=== PATIENT | male | born 1950 | race Caucasian/White ===

== ENCOUNTER 2019-05-29 18:45 | Inpatient (IN) | payer OTHER, MEDICAID ==
[~2019-05-29] VITALS: Ht 180.3 cm; Wt 84.8 kg
[2019-05-29 18:45] VITALS: BP_SYST 115
--- NOTE | 2019-05-29 18:45 | NUR ---
Patient to ER bed 5 to gown for evaluation. Side rails up. Report given to JUAN A Riebra.
--- NOTE | 2019-05-29 18:50 | NUR ---
Patient BIB BLS from [facility] for further assessment of right foot wound that has continued to get worse. Patient has a wound on his right food between his third and fourth toe. Patient is alert and oriented x4 and is eritrean speaking. 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 Patient has a history of hypertension, diabetes, chronic osteomyelitis and is legally blind in both eyes. Patient was started on Levaquin on the for a duration of 42 days.
--- NOTE | 2019-05-29 19:09 | NUR ---
report given to mindy snyder
--- NOTE | 2019-05-29 19:30 | NUR ---
ER Dr. Bush at bedside examining patient.
--- NOTE | 2019-05-29 20:00 | NUR ---
Radiology at bedside.
--- NOTE | 2019-05-29 20:05 | NUR ---
Lab at bedside.
[2019-05-29 20:18] LABS: BASOPHILS # (AUTO) 0.1 K/uL (0.0-0.2); BASOPHILS % (AUTO) 0.8 % (0.0-2.0); EOSINOPHILS # (AUTO) 0.1 K/uL (0.0-0.4); EOSINOPHILS % (AUTO) 0.7 % (0.0-4.0); HEMATOCRIT 34.2 % (36-54); HEMOGLOBIN 11.5 g/dL (14.0-18.0); LYMPHOCYTES # (AUTO) 0.5 K/uL (1.0-5.5); LYMPHOCYTES % (AUTO) 3.7 % (20.5-51.5); MEAN CORPUSCULAR HEMOGLOBIN 32 pg (27-31); MEAN CORPUSCULAR HGB CONC 34 % (32-36); MEAN CORPUSCULAR VOLUME 94 fL (79.0-98.0); MONOCYTES # (AUTO) 0.6 K/uL (0.0-1.0); MONOCYTES % (AUTO) 4.1 % (1.7-9.3); NEUTROPHILS % (AUTO) 90.7 % (40.0-70.0); PLATELET COUNT (AUTO) 207 K/uL (130-430); RED BLOOD CELL COUNT(AUTO) 3.65 MIL/uL (4.2-6.2); RED CELL DISTRIBUTION WIDTH 12.7 % (9.0-15.0); WHITE BLOOD COUNT (AUTO) 14.3 K/uL (4.8-10.8)
[2019-05-29 20:37] LABS: CALCIUM 7.8 mg/dL (8.4-11.0); CREATININE 1.37 mg/dL (0.55-1.30); POTASSIUM 3.9 mmol/L (3.5-5.1)
[2019-05-29 20:47] LABS: ALBUMIN 1.8 g/dL (3.4-4.8); TOTAL BILIRUBIN 0.4 mg/dL (0.0-1.0)
[2019-05-29 21:08] LABS: C-REACTIVE PROTEIN QUANT 17.1 mg/dL (0-0.5)
[2019-05-29] MEDS ORDERED: NACL 0.9% 1,000 ML IV ONE (21:30)
[2019-05-29] MEDS ORDERED: PIPERACILLIN/TAZO 3.375 GM in NS 50 ML IV ONE (21:30)
[2019-05-29] MEDS ORDERED: VANCOMYCIN HCL 1,000 MG in NS 250 ML IV ONE (21:30)
[2019-05-29] MEDS ORDERED: LINA5TAB2 PO (21:39)
[2019-05-29] MEDS ORDERED: SSREG SUBCUT (21:39)
[2019-05-29] MEDS ORDERED: MULT-1117 PO (21:39)
[2019-05-29] MEDS ORDERED: ZINC220T4 PO (21:39)
[2019-05-29] MEDS ORDERED: DOCU-144 PO (21:39)
[2019-05-29] MEDS ORDERED: GUAI100L55 PO (21:39)
[2019-05-29] MEDS ORDERED: ASCO500T20 PO (21:39)
[2019-05-29] MEDS ORDERED: NIFE-2 PO (21:39)
[2019-05-29] MEDS ORDERED: LEVO750T45 PO (21:39)
[2019-05-29] MEDS ORDERED: LIP40 PO (21:39)
--- NOTE | 2019-05-29 21:39 | NUR ---
Medication reconciliation completed with information provided by [facility]. Any prior medication reconciliation on file was reviewed and corrected.
[2019-05-29 21:42] LABS: ERYTHROCYTE SEDIMENTATION RATE 98 MM/HR (0-15)
--- NOTE | 2019-05-29 21:43 | NUR ---
# 20 gauge angiocath placed to Right Wrist. Use of asceptic technique. Opsite placed over site. Blood return noted. Blood for lab drawn from site. Flushed with 10 cc of normal saline. No evidence of infiltration noted. Patient tolerated well.
--- NOTE | 2019-05-29 21:54 | NUR ---
Pt medicated per MD orders.
[2019-05-29] MEDS ORDERED: PIPERACILLIN/TAZOBACTAM 3.375 GM/VIAL (ZOSYN) IV ONE (22:04)
--- NOTE | 2019-05-29 22:25 | NUR ---
Called [facility] for Bed assignment.
[2019-05-29] MEDS ORDERED: KCL 20 mEq in NS 1000 mL 1,000 ML IV ONE (22:30)
--- NOTE | 2019-05-29 22:30 | NUR ---
Patient will be admitted to care of . Admitted to Tele unit. Will go to room 117. Belongings list completed. Complete and up to date summary report printed. SBAR report to be given at bedside with opportunity for questions.
[2019-05-29] MEDS ORDERED: VANCOMYCIN HCL 1000 MG/VIAL IV ONE (22:51)
--- NOTE | 2019-05-29 23:14 | NUR ---
Transfer to Telemetry room 117A via ACLS protocol. Licensed nurse present. IV present no signs or symptoms of infiltration.
--- NOTE | 2019-05-29 23:21 | NUR ---
ADMISSION: The patient, LANEY ESPINOSA, 69 y/o, M admitted by PHILIP MONIQUE MD, with the diagnosis of OSTEOMYELITIS AND ACUTE DEHYDRATION ,to room 117 A .
[2019-05-29] MEDS ORDERED: ACETAMINOPHEN 325 MG TABLET PO PRN (23:30)
--- NOTE | 2019-05-29 23:45 | NUR ---
Dr. Lui Poe on unit, here to see / eval patient.
--- NOTE | 2019-05-29 23:46 | NUR ---
CONSULTATION PAGED/CALLED Reason for Consultation: GANGREN OF [employer] FOOT Person Who was Notified: ELLE Consulting Physician: Footwear Production Machine Operator Specialty: Ordering Physician:
[2019-05-29 23:50] VITALS: BP_SYST 144
--- NOTE | 2019-05-29 23:50 | NUR ---
SBAR / assessment Received SBAR report from JUAN A Wesley admit nurse. Patient awake, alert and presently reports pain is tolerable, he said if turns foot or puts pressure it will hurt. Assessment complete, patient resting in comfortable position. Safety precautions in place and call light near.
[2019-05-30] MEDS ORDERED: PIPERACILLIN/TAZO 3.375/DEX-IS 50 ML IV SCH
[2019-05-30 00:24] VITALS: BP_SYST 134
--- NOTE | 2019-05-30 00:25 | NUR ---
Pictures Assessment complete, charted and took pictures.
[2019-05-30] MEDS ORDERED: KCL 20 mEq in NS 1000 mL 1,000 ML IV ONE (01:28)
[2019-05-30] MEDS ORDERED: PIPERACILLIN/TAZOBACTAM 3.375 GM/VIAL (ZOSYN) IV ONE (01:28)
--- NOTE | 2019-05-30 02:15 | NUR ---
IVF IV fluids infusing as ordered at 75 ml/hr and patient tolerating. Patient is resting in comfortable position, presently no pain. Safety precautions in place and call light near.
--- NOTE | 2019-05-30 04:20 | NUR ---
Resting Patient is resting w/eyes closed. Nonlabored breathing and presently not coughing. IVF infusing well, safety precautions in place and call light w/in reach.
--- NOTE | 2019-05-30 05:20 | NUR ---
Wound dressing Wound dressing to wound on right foot was done, per policy, see [facility]ST charting.
[2019-05-30] MEDS: PIPERACILLIN/TAZO 3.375/DEX-IS 50 ML IV SCH ×4 (05:51→23:57)
--- NOTE | 2019-05-30 07:00 | NUR ---
closing note Fingerstick BG test result was 188 mg/dL and covered with 2 units per sliding scale order. Patient is resting in comfortable position, no SOB, no distress. IVF infusing well, safety precautions in place and call light near. Will endorse care to incoming nurse.
[2019-05-30] MEDS: INSULIN REGULAR, HUMAN 100 UNITS/ML, 10 ML VIAL (humuLIN R) SUBCUT PRN ×4 (07:01→21:56)
--- NOTE | 2019-05-30 08:00 | NUR ---
INITIAL NOTES Awake, lying in bed. Oriented. Denies any shortness of breath on room air. IVF infusing well. Pain is controlled at this time. Eating breakfast. Fall and safety precautions in place. Call light within reach. Encouraged patient to call anytime for assistance.
[2019-05-30 08:08] LABS: BASOPHILS # (AUTO) 0.1 K/uL (0.0-0.2); BASOPHILS % (AUTO) 0.7 % (0.0-2.0); EOSINOPHILS # (AUTO) 0.1 K/uL (0.0-0.4); EOSINOPHILS % (AUTO) 0.5 % (0.0-4.0); HEMATOCRIT 34.2 % (36-54); HEMOGLOBIN 11.8 g/dL (14.0-18.0); LYMPHOCYTES # (AUTO) 0.5 K/uL (1.0-5.5); MEAN CORPUSCULAR HEMOGLOBIN 32 pg (27-31); MEAN CORPUSCULAR HGB CONC 34 % (32-36); MEAN CORPUSCULAR VOLUME 93 fL (79.0-98.0); MONOCYTES # (AUTO) 0.5 K/uL (0.0-1.0); NEUTROPHILS # (AUTO) 12.3 K/uL (1.8-7.7); NEUTROPHILS % (AUTO) 90.8 % (40.0-70.0); PLATELET COUNT (AUTO) 212 K/uL (130-430); RED BLOOD CELL COUNT(AUTO) 3.69 MIL/uL (4.2-6.2); RED CELL DISTRIBUTION WIDTH 12.8 % (9.0-15.0); WHITE BLOOD COUNT (AUTO) 13.5 K/uL (4.8-10.8)
[2019-05-30 08:23] VITALS: BP_SYST 140
[2019-05-30] MEDS: MEGESTROL ACETATE 400 MG/10 ML UDC PO SCH ×2 (08:38→21:57)
[2019-05-30] MEDS: guaiFENesin 200 MG/10 ML UDC PO SCH ×4 (08:38→21:57)
[2019-05-30] MEDS: NIFEDIPINE 30 MG TAB.ER.24 PO SCH (08:39)
[2019-05-30] MEDS: DOCUSATE SODIUM 100 MG CAPSULE PO SCH ×2 (08:39→21:58)
[2019-05-30] MEDS: MULTIVITAMINS TAB 1 TABLET PO SCH (08:40)
[2019-05-30] MEDS: ASCORBIC ACID 500 MG TABLET PO SCH (08:40)
[2019-05-30 09:03] LABS: CALCIUM 7.8 mg/dL (8.4-11.0); CREATININE 1.09 mg/dL (0.55-1.30); PHOSPHORUS 2.8 mg/dL (2.7-4.5); POTASSIUM 4.2 mmol/L (3.5-5.1)
--- NOTE | 2019-05-30 09:19 | NUR ---
Nutrition Update Durga Scale 15 noted. Pt admitted for osteomyelitis, acute dehydration. Diet: CCHO, mechanical soft BMI: 26.3 kg/m2 RD to follow per nutrition care standards.
--- NOTE | 2019-05-30 10:00 | NUR ---
MRI Patient was picked up by staff for MRI.
[2019-05-30] MEDS: VANCOMYCIN HCL 2,000 MG in NS 500 ML IV SCH (11:57)
--- NOTE | 2019-05-30 12:00 | NUR ---
Patient came back from MRI with staff, Irma. Ensured safety.
[2019-05-30 12:21] VITALS: BP_SYST 136
--- NOTE | 2019-05-30 14:23 | NUR ---
Woodyard Operator: conduct a DCPA and a Social Work interview. TOOL MACHINIST called family member, pts. brother, Edu Resendez however due to the language barrier, TOOL MACHINIST had to call the [facility] at [phone]. TOOL MACHINIST spoke to Jarrod there who was able to assist with confirming the demographics on pts. facesheet. Pt. had previously been at [facility] for 3 months, then he went back home. Patient had to eventually come back to [facility] and had been there for a month prior to being hospitalized at [facility] on 05/29/19. Jarrod stated pt. is blind and also had a toe amputated at [facility]. He also stated pt. will not be able to return back home. He did stated the plan is to have pt. return to [facility] upon his discharge. TOOL MACHINIST thanked him for his info and will remain available as needed.
--- NOTE | 2019-05-30 14:36 | NUR ---
Resting in bed. No complains of shortness of breath on room air. IVF infusing well. Pain is controlled at this time. Helped reposition. Will continue to monitor.
--- NOTE | 2019-05-30 15:30 | NUR ---
WOUND CARE Seen by wound care nurse.
--- NOTE | 2019-05-30 15:40 | NUR ---
WOUND EVALUATION: Wound Consult received from Dr. Poe. Thank you, Dr. Poe, for the consult. Patient received in a [place] Bed with an Atmos-Air 9000 mattress, awake, alert, oriented, Thai speaking. Patient is unable to turn in bed independently. Durga Score is a . Past Medical History: Diabetes Mellitus, Hypertension, Peripheral Vascular Disease of lower extremities, Legally Blind, severe Malnutrition, and gangrene of the right fourth and fifth toes with surgical amputation two months ago. Recent Labs: WBC 13.5, RBC 3.69, Hgb 11.8, Hct 34.2, ESR 98, BUN 20, Creat 1.09, GFR 72, Alb 1.8. Microbiology: Blood Culture results x 2 in progress. MRSA Screen results in progress. Intrinsic factors that delay wound healing: Diabetes Mellitus, Peripheral Vascular Disease, severe Malnutrition, Hypoalbuminemia. Extrinsic factors that delay wound healing: Decreased mobility. Wound Assessment: 1. Right Fourth Toe Surgical amputation site (from Gangrenous Diabetic Ulcer), present on admission. Wound bed has 85% dull, dark red tissue, 10% yellow tissue, 5% black tissue. No odor, scant sanguineous drainage. Ekaterina-wound intact. Extremity is cool to touch, and has mild edema. Foot is cold to touch, weak Dorsalis Pedis pulse, and has 1+ pitting edema. Multiple dry black scabs present on plantar, and plantar lateral/plantar medial aspects of foot. Foot has Charcot deformity. Wound measures 3.6 cm x 0.9 cm x 0.7 cm. 2. Right Lateral Third Toe: Diabetic Ulcer, present on admission. Wound bed has 90% black eschar, 10% dark red tissue. No odor, no drainage. Ekaterina-wound intact. Extremity is cool to touch, and has mild edema. Foot is cold to touch, weak Dorsalis Pedis pulse, and has 1+ pitting edema. Multiple dry black scabs present on plantar, and plantar lateral/plantar medial aspects of foot. Foot has Charcot deformity.Wound measures 2.0 cm x 2.0 cm. Recommend: Cleanse wounds with normal saline. Apply SurePrep to ekaterina-wound. Apply Venelex ointment to wound bed. Pack Right Fourth Toe surgical amputation site with 1/4 inch Iodoform packing strip. Cover with non-adhesive foam dressing, cut to size. Wrap with kate wrap. Perform wound care daily, and as needed for dressing soiling or dislodgement. 3. Left Lateral Fifth Toe: Scar tissue, present on admission. Plantar foot has dry, flaky skin. Recommend: No dressing needed. Continue to monitor site qshift. Apply Eucerin cream to bilateral feet and lower extremities BID. Also recommend: Encourage and assist patient as needed with repositioning every 2 hours with pillow support and off-load pressure areas with pillows for pressure re-distribution. Offload, elevate and float bilateral heels with pillows. Perform skin care and monitor skin integrity Q shift. Use moisture barrier cream on buttocks and other moisture susceptible areas QID and as needed for soiling. Place patient on a low air-loss mattress.
--- NOTE | 2019-05-30 16:00 | NUR ---
Wound care done per guidelines. Pain is controlled per patient. Helped assume a comfortable position.
[2019-05-30 16:41] VITALS: BP_SYST 130
[2019-05-30] MEDS ORDERED: BALSAM PERU/CASTOR OIL 60 GM OINT...G. TP ONE (17:00)
--- NOTE | 2019-05-30 18:31 | NUR ---
CLOSING NOTES Resting in bed. Ate most of his dinner. Denies any pain or shortness of breath on room air. IVF infusing well. Needs met throughout shift. Fall and safety precautions in place. Will endorse.
[2019-05-30 20:00] VITALS: BP_SYST 131
--- NOTE | 2019-05-30 20:00 | NUR ---
ASSUMED CARE. RECEIVED ALERT,ORIENTED, VERBALLY RESPONSIVE IN SERBIAN ONLY. AFEBRILE, NOT IN ACUTE DISTRESS. NO PAIN OR DISCOMFORT NOTED. WITH SALINE LOCK TO THE RIGHT WRIST # 20 INTACT. SAO2=97% ON RA. RIGHT FOOT DRESSING CLEAN,DRY AND INTACT. SINUS RHYTHM @ 70'S/MINUTE ON THE MONITOR. VS STABLE, WILL CONTINUE TO MONITOR. NEEDS ATTENDED.
[2019-05-30] MEDS ORDERED: ENOXAPARIN SODIUM 30 MG/0.3 ML SYRINGE SUBCUT SCH (21:00)
[2019-05-30] MEDS: ATORVASTATIN 20 MG TABLET PO SCH (21:58)
--- NOTE | 2019-05-30 21:58 | NUR ---
FINGERSTICK BLOOD SUGAR [id number]=598. 4 UNITS OF REGULAR INSULIN SQ GIVEN PER SLIDING SCALE. ALL OTHER DUE MEDICATIONS ALSO GIVEN.
--- NOTE | 2019-05-30 23:57 | NUR ---
ASLEEP, NOT IN ANY KIND OF DISTRESS. NO PAIN OR DISCOMFORT NOTED. DUE IV ANTIBIOTIC GIVEN. NEW CLEOCIN IVPB ORDERED NOT IN PATIENT'S CASSETTE, WILL ORDER FROM TRIBAL COUNCIL MEMBER. SIDE RAILS UP, CALL LIGHT WITHIN REACH. KEPT WARM AND COMFORTABLE. VS REMAIN STABLE. WILL CONTINUE TO MONITOR.
[2019-05-31 00:30] VITALS: BP_SYST 122
[2019-05-31] MEDS: CLINDAMYCIN 300 MG in D5W 50 ML IV SCH ×3 (00:40→12:40)
--- NOTE | 2019-05-31 00:40 | NUR ---
PT. STARTED ON CLEOCIN 300 MG IVPB ORDERED.
[2019-05-31] MEDS ORDERED: CLINDAMYCIN 600 mg/50mL D5W 100 ML IV ONE (00:42)
--- NOTE | 2019-05-31 04:00 | NUR ---
ASLEEP, NO SIGNIFICANT CHANGE. PT. REMAINS ASYMPTOMATIC AND PAIN FREE. WILL CONTINUE TO MONITOR.
[2019-05-31] MEDS: PIPERACILLIN/TAZO 3.375/DEX-IS 50 ML IV SCH ×4 (05:43→23:58)
--- NOTE | 2019-05-31 06:21 | NUR ---
FINGERSTICK BLOOD SUGAR JGNIK=301. 2 UNITS OF REGULAR INSULIN SQ PER SLIDING SCALE. DUE IV ANTIBIOTIC ADMINISTERED.
[2019-05-31] MEDS: INSULIN REGULAR, HUMAN 100 UNITS/ML, 10 ML VIAL (humuLIN R) SUBCUT PRN ×4 (06:23→20:59)
--- NOTE | 2019-05-31 07:12 | NUR ---
ENDORSED CARE TO GERDA ZIMMER.
[2019-05-31 08:00] VITALS: BP_SYST 140
--- NOTE | 2019-05-31 08:00 | NUR ---
INITIAL NOTES In bed, eating breakfast well. No sign of distress. Pain is controlled per patient. Dressing dry and intact on right foot wound. Right extremity cool to touch. Fall and safety precautions in place. Call light within reach. Encouraged to call for assistance. Will monitor.
[2019-05-31] MEDS: MULTIVITAMINS TAB 1 TABLET PO SCH (08:34)
[2019-05-31] MEDS: NIFEDIPINE 30 MG TAB.ER.24 PO SCH (08:34)
[2019-05-31] MEDS: ASCORBIC ACID 500 MG TABLET PO SCH (08:34)
[2019-05-31] MEDS: MEGESTROL ACETATE 400 MG/10 ML UDC PO SCH ×2 (08:35→20:53)
[2019-05-31] MEDS: guaiFENesin 200 MG/10 ML UDC PO SCH ×4 (08:35→20:53)
[2019-05-31] MEDS: DOCUSATE SODIUM 100 MG CAPSULE PO SCH ×2 (08:35→20:54)
[2019-05-31] MEDS: BALSAM PERU/CASTOR OIL 60 GM OINT...G. TP SCH (08:36)
[2019-05-31] MEDS: VANCOMYCIN HCL 2,000 MG in NS 500 ML IV SCH (08:37)
--- NOTE | 2019-05-31 10:30 | NUR ---
Resting in bed. No sign of distress. IV antibiotics running well. Needs attended. Will continue to monitor.
[2019-05-31] MEDS ORDERED: HEPARIN SODIUM,PORCINE 3000 UNITS/0.6 ML BOLUS IVP PRN (12:00)
[2019-05-31] MEDS ORDERED: HEPARIN SODIUM,PORCINE 2000 UNITS/0.4 ML BOLUS IVP PRN (12:00)
--- NOTE | 2019-05-31 12:02 | NUR ---
Surgery consult called: for Dr. Torres, regarding ischemic foot, ordered by Dr. Matthews, spoke with Jennifer at exchange.
--- NOTE | 2019-05-31 12:30 | NUR ---
MD ROUNDS Seen and examined by Dr. Torres. Made new orders.
[2019-05-31 12:35] VITALS: BP_SYST 140
[2019-05-31 13:23] LABS: INR 1.1 (0.80-1.20); PROTHROMBIN TIME 10.6 SECS (9.5-12.5)
[2019-05-31 13:39] LABS: CALCIUM 7.4 mg/dL (8.4-11.0); CREATININE 0.93 mg/dL (0.55-1.30); POTASSIUM 3.9 mmol/L (3.5-5.1)
[2019-05-31] MEDS ORDERED: IOHEXOL 350 mgI/mL, 150 ML INFUS..BTL IV ONE (14:03)
--- NOTE | 2019-05-31 14:15 | NUR ---
Spoke to pharmacist and ordered to start heparin drip at 1500units/hr
--- NOTE | 2019-05-31 14:17 | NUR ---
Pt went to CT scan at this time. Will start heparin once patient back.
[2019-05-31] MEDS: HEPARIN 25,000 UNITS/D5W 250ML 250 ML IV PRN (14:41)
--- NOTE | 2019-05-31 14:59 | NUR ---
heparin drip started at this time.
--- NOTE | 2019-05-31 15:28 | NUR ---
Dietitian Recommendations * Recommend CCHO high carb-75 gm, mechanical soft diet w/ Brent BID (wound healing modular provides an additional 180 kcal/day, 5 gm protein/day) CARLOS, PETER Please refer to Nutrition Assessment for details. Addendum: 05/31/19 at [address] Amended: Links added.
[2019-05-31 16:05] VITALS: BP_SYST 128
--- NOTE | 2019-05-31 16:14 | NUR ---
Resting in bed. No sign of distress. Pain is controlled at this time per patient. Heparin drip infusing well. Fall and safety precautions in place.
--- NOTE | 2019-05-31 18:32 | NUR ---
CLOSING NOTES In bed, eating dinner. No sign of distress. Pain on the right foot is tolerated per patient, kept elevated. IVF infusing well. All needs met throughout the shift. Will endorse.
--- NOTE | 2019-05-31 19:30 | NUR ---
OPENING NOTES RECEIVED SBAR REPORT. PT RESTING IN BED. BREATHING UNLABORED TO ROOM AIR. NO S/S ACUTE DISTRESS. HEPARIN DRIP INFUSING AT 15 ML/HR. PT TOLERATING WELL AT THIS TIME. NO S/S BLEEDING NOTED. FALL AND SAFETY PRECAUTIONS IN PLACE. CALL LIGHT WITHIN REACH. TWO SIDE RAILS UP. WILL MONITOR.
[2019-05-31 20:00] VITALS: BP_SYST 115
[2019-05-31] MEDS: ATORVASTATIN 20 MG TABLET PO SCH (20:54)
[2019-05-31] MEDS ORDERED: FLU VACC TS2019(65UP)/MF59C/PF 45 MCG/0.5 ML SYRINGE I.M. PRN (21:00)
[2019-05-31] MEDS: HYDROcodone/ACETAMIN 5-325 MG TAB (NORCO/ VICODIN) PO PRN (21:07)
--- NOTE | 2019-05-31 21:07 | NUR ---
FLU SHOT/ PAIN MEDICATION ADMINISTERED FLU SHOT. PT TOLERATING WELL. PT REPORTING MODERATE PAIN TO HIS RIGHT LEG. NORCO 5-325 MG ADMINISTERED PRN. EDUCATED PT REGARDING NORCO MEDICATION ACTIONS AND POTENTIAL SIDE EFFECTS. FALL AND SAFETY PRECAUTIONS IN PLACE. WILL MONITOR.
--- NOTE | 2019-05-31 22:30 | NUR ---
PTT PTT NOTED TO BE 59.4. HEPARIN AT 15 ML/HR MAINTAINED PER PROTOCOL. PTT ORDERED TO BE DRAWN TOMORROW. WILL MONITOR.
--- NOTE | 2019-05-31 23:58 | NUR ---
MEDICATION PASS ZODELVINN HUNG ORDERED. NO S/S OF ADVERSE REACTION NOTED. PT RESTING IN BED. NO S/S OF ACUTE DISTRESS. FALL AND SAFETY PRECAUTIONS MAINTAINED. WILL MONITOR.
[2019-06-01 00:53] VITALS: BP_SYST 127
--- NOTE | 2019-06-01 02:17 | NUR ---
SLEEPING PT RESTING IN BED. NO S/S OF ACUTE DISTRESS NOTED. HEPARIN DRIP INFUSING AT 15ML/HR. FALL AND SAFETY PRECAUTIONS IN PLACE. CALL LIGHT WITHIN REACH. WILL MONITOR.
--- NOTE | 2019-06-01 04:30 | NUR ---
WOUND DRESSING CHANGE/PAIN MEDICATION CHANGED RIGHT TOE WOUND DRESSING. PT REPORTING SHOOTING PAIN ON RIGHT TOES. ADMINISTERED NORCO MEDICATION NEEDED. EDUCATED PT REGARDING NORCO MEDICATION ACTIONS AND POTENTIAL SIDE EFFECTS. SAFETY AND FALL PRECAUTIONS IN PLACE. WILL MONITOR.
[2019-06-01] MEDS: HYDROcodone/ACETAMIN 5-325 MG TAB (NORCO/ VICODIN) PO PRN ×2 (04:36→21:03)
[2019-06-01] MEDS: PIPERACILLIN/TAZO 3.375/DEX-IS 50 ML IV SCH ×4 (05:58→23:38)
[2019-06-01] MEDS: INSULIN REGULAR, HUMAN 100 UNITS/ML, 10 ML VIAL (humuLIN R) SUBCUT PRN ×4 (06:06→21:00)
--- NOTE | 2019-06-01 06:22 | NUR ---
CLOSING NOTES ACCU-CHECK. BLOOD SUGAR OF 176. ADMINISTERED 2 UNITS OF REGULAR INSULIN. PT RESTING IN BED. NO S/S OF ACUTE DISTRESS NOTED. PT TOLERATING [facility] VENT SETTING AND TUBE FEEDING. FALL, SAFETY, SEIZURE, AND ASPIRATION PRECAUTIONS IN PLACE. LOCKED BED TO LOWEST POSITION. WILL CONTINUE TO MONITOR UNTIL ENDORSE TO DAY SHIFT. Addendum: 06/01/19 at 0631 by Pooja Rosales RN DISREGARD: WRONG PATIENT
--- NOTE | 2019-06-01 06:31 | NUR ---
CLOSING NOTES ACCU-CHECK. BLOOD SUGAR OF 176. ADMINISTERED 2 UNITS OF REGULAR INSULIN. PT RESTING IN BED. NO S/S OF ACUTE DISTRESS NOTED. FALL AND SAFETY PRECAUTIONS IN PLACE. LOCKED BED TO LOWEST POSITION. WILL CONTINUE TO MONITOR UNTIL ENDORSE TO DAY SHIFT.
[2019-06-01] MEDS: HEPARIN 25,000 UNITS/D5W 250ML 250 ML IV PRN ×2 (08:58→20:56)
[2019-06-01] MEDS: MULTIVITAMINS TAB 1 TABLET PO SCH (08:59)
[2019-06-01] MEDS: MEGESTROL ACETATE 400 MG/10 ML UDC PO SCH ×2 (08:59→21:02)
[2019-06-01] MEDS: NIFEDIPINE 30 MG TAB.ER.24 PO SCH (08:59)
[2019-06-01] MEDS: guaiFENesin 200 MG/10 ML UDC PO SCH ×4 (08:59→21:02)
[2019-06-01] MEDS: DOCUSATE SODIUM 100 MG CAPSULE PO SCH ×2 (08:59→21:03)
[2019-06-01] MEDS: ASCORBIC ACID 500 MG TABLET PO SCH (08:59)
[2019-06-01] MEDS: VANCOMYCIN HCL 2,000 MG in NS 500 ML IV SCH (09:01)
[2019-06-01] MEDS: BALSAM PERU/CASTOR OIL 60 GM OINT...G. TP SCH (09:02)
[2019-06-01 09:52] LABS: BASOPHILS % (AUTO) 0.2 % (0.0-2.0); EOSINOPHILS # (AUTO) 0.2 K/uL (0.0-0.4); EOSINOPHILS % (AUTO) 1.3 % (0.0-4.0); HEMATOCRIT 34.4 % (36-54); HEMOGLOBIN 11.5 g/dL (14.0-18.0); LYMPHOCYTES # (AUTO) 0.9 K/uL (1.0-5.5); LYMPHOCYTES % (AUTO) 6.4 % (20.5-51.5); MEAN CORPUSCULAR HEMOGLOBIN 31 pg (27-31); MEAN CORPUSCULAR HGB CONC 33 % (32-36); MEAN CORPUSCULAR VOLUME 94 fL (79.0-98.0); MONOCYTES # (AUTO) 0.6 K/uL (0.0-1.0); MONOCYTES % (AUTO) 4.2 % (1.7-9.3); NEUTROPHILS # (AUTO) 11.7 K/uL (1.8-7.7); NEUTROPHILS % (AUTO) 87.9 % (40.0-70.0); PLATELET COUNT (AUTO) 231 K/uL (130-430); RED BLOOD CELL COUNT(AUTO) 3.68 MIL/uL (4.2-6.2); RED CELL DISTRIBUTION WIDTH 12.7 % (9.0-15.0); WHITE BLOOD COUNT (AUTO) 13.3 K/uL (4.8-10.8)
[2019-06-01 09:55] LABS: CALCIUM 7.5 mg/dL (8.4-11.0); CREATININE 1.09 mg/dL (0.55-1.30); POTASSIUM 4.1 mmol/L (3.5-5.1)
[2019-06-01 11:30] VITALS: BP_SYST 135
--- NOTE | 2019-06-01 11:53 | NUR ---
HR MCALLISTER HERE AND SEEN PT, REVIEWED CT ANGIO, SAID PATIENT MAY NOT BE A GOOD CANDIDATE FOR REVASCULARIZATION, MEANTIME CONTINUE HEPARIN, MAY HAVE TO CONSIDER AMPUTATION. Addendum: 06/01/19 at 1156 by Jose Ramon Matthews RN CORRECTION: DR QUINN...
[2019-06-01 15:43] VITALS: BP_SYST 136
--- NOTE | 2019-06-01 19:18 | NUR ---
PT ENDORSED TO NIGHT NURSE, PT ON STABLE CONDITION. ENDORSE TO FF-UP THE APTT RESULT DRAWN THIS PM.
--- NOTE | 2019-06-01 19:30 | NUR ---
OPENING NOTES RECEIVED SBAR REPORT. PT RESTING IN BED. BREATHING UNLABORED TO ROOM AIR. NO S/S ACUTE DISTRESS. HEPARIN DRIP INFUSING AT 17 ML/HR. PT TOLERATING WELL AT THIS TIME. NO S/S BLEEDING NOTED. FALL AND SAFETY PRECAUTIONS IN PLACE. CALL LIGHT WITHIN REACH. TWO SIDE RAILS UP. WILL MONITOR.
[2019-06-01 20:00] VITALS: BP_SYST 128
--- NOTE | 2019-06-01 20:00 | NUR ---
CRITICAL HIGH PTT RECEIVED CRITICAL HIGH APTT OF 96.7. FOLLOWING HEPARIN PROTOCOL. HEPARIN INFUSION HELD AT 1953. ORDER FOR REPEAT APTT PUT IN FOR 6 HOURS AFTER RATE CHANGE. PT SHOWING NO S/S OF ACTIVE BLEEDING. SAFETY PRECAUTIONS ARE IN PLACE. WILL MONITOR. Addendum: 06/01/19 at 2217 by Denita Rasheed RN AMKYRIED: REPEAT APPT WILL BE DRAWN 6 HOURS AFTER HEPARIN IS RESTARTED WITH RATE CHANGE PER PROTOCOL.
--- NOTE | 2019-06-01 20:56 | NUR ---
HEPARIN RATE CHANGE HEPARIN RATE RESTARTED AND DECREASED TO 15ML/HR PER HEPARIN PROTOCOL. SECOND NURSE VERIFIED. NO S/S OF ACTIVE BLEEDING NOTED. SAFETY AND FALL PRECAUTIONS IN PLACE. WILL MONITOR.
[2019-06-01] MEDS: VANCOMYCIN HCL 1,000 MG in NS 250 ML IV SCH (21:03)
[2019-06-01] MEDS: ATORVASTATIN 20 MG TABLET PO SCH (21:03)
--- NOTE | 2019-06-01 23:00 | NUR ---
SLEEPING PT RESTING IN BED. PAIN IS CONTROLLED AT THIS TIME. NO SIGN AND SYMPTOMS OF ACUTE DISTRESS. BREATHING UNLABORED TO ROOM AIR. HEPARIN DRIP INFUSING AT 15 ML/HR. NO S/S OF ACTIVE BLEEDING NOTED. FALL AND SAFETY PRECAUTIONS MAINTAINED. TWO SIDE RAILS UP. CALL LIGHT WITHIN REACH. WILL CONTINUE TO MONITOR.
[2019-06-02 00:31] VITALS: BP_SYST 123
--- NOTE | 2019-06-02 00:58 | NUR ---
RN ROUNDS PT RESTING IN BED. NO SIGN AND SYMPTOMS OF ACUTE DISTRESS. BREATHING UNLABORED TO ROOM AIR. FALL AND SAFETY PRECAUTIONS MAINTAINED. TWO SIDE RAILS UP. CALL LIGHT WITHIN REACH. WILL CONTINUE TO MONITOR.
[2019-06-02] MEDS: HEPARIN 25,000 UNITS/D5W 250ML 250 ML IV PRN ×2 (02:25→15:06)
--- NOTE | 2019-06-02 02:25 | NUR ---
CHANGED HEPARIN BAG HUNG NEW HEPARIN BAG. RATE AT 15ML/HR PER HEPARIN PROTOCOL. SECOND NURSE VERIFIED. NO S/S OF ACTIVE BLEEDING NOTED. SAFETY, FALL, AND BLEEDING PRECAUTIONS MAINTAINED. WILL CONTINUE TO MONITOR.
[2019-06-02 03:44] LABS: BASOPHILS # (AUTO) 0.1 K/uL (0.0-0.2); BASOPHILS % (AUTO) 0.4 % (0.0-2.0); EOSINOPHILS # (AUTO) 0.1 K/uL (0.0-0.4); EOSINOPHILS % (AUTO) 0.9 % (0.0-4.0); HEMOGLOBIN 11.7 g/dL (14.0-18.0); LYMPHOCYTES # (AUTO) 0.9 K/uL (1.0-5.5); LYMPHOCYTES % (AUTO) 5.8 % (20.5-51.5); MEAN CORPUSCULAR HEMOGLOBIN 31 pg (27-31); MEAN CORPUSCULAR HGB CONC 34 % (32-36); MEAN CORPUSCULAR VOLUME 93 fL (79.0-98.0); MONOCYTES # (AUTO) 0.5 K/uL (0.0-1.0); MONOCYTES % (AUTO) 3.6 % (1.7-9.3); NEUTROPHILS # (AUTO) 13.5 K/uL (1.8-7.7); NEUTROPHILS % (AUTO) 89.3 % (40.0-70.0); PLATELET COUNT (AUTO) 239 K/uL (130-430); RED BLOOD CELL COUNT(AUTO) 3.77 MIL/uL (4.2-6.2); RED CELL DISTRIBUTION WIDTH 12.6 % (9.0-15.0); WHITE BLOOD COUNT (AUTO) 15.1 K/uL (4.8-10.8)
--- NOTE | 2019-06-02 03:46 | NUR ---
WOUND DRESSING CHANGE CHANGED RIGHT TOE WOUND DRESSING. PT TOLERATED WELL. PT SLEEPING IN BED. NO ACUTE DISTRESS NOTED. SAFETY AND FALL PRECAUTIONS IN PLACE. WILL MONITOR.
--- NOTE | 2019-06-02 03:58 | NUR ---
PTT PTT NOTED TO BE 72.7. NO ACTION REQUIRED AT THIS TIME,HEPARIN AT 15 ML/HR MAINTAINED PER PROTOCOL. PTT ORDERED TO BE DRAWN TOMORROW. WILL MONITOR.
[2019-06-02 03:59] LABS: ALBUMIN 1.5 g/dL (3.4-4.8); CALCIUM 7.5 mg/dL (8.4-11.0); CREATININE 1.1 mg/dL (0.55-1.30); POTASSIUM 4.2 mmol/L (3.5-5.1); TOTAL BILIRUBIN 0.3 mg/dL (0.0-1.0)
[2019-06-02] MEDS: PIPERACILLIN/TAZO 3.375/DEX-IS 50 ML IV SCH ×2 (05:00→12:00)
--- NOTE | 2019-06-02 05:00 | NUR ---
ZOSYN ZOSYN HUNG ORDERED RATE. PT TOLERATING WELL. NO S/S OF ADVERSE REACTION NOTED. BREATHING UNLABORED TO ROOM AIR. FALL AND SAFETY PRECAUTIONS IN PLACE. WILL MONITOR.
[2019-06-02] MEDS: INSULIN REGULAR, HUMAN 100 UNITS/ML, 10 ML VIAL (humuLIN R) SUBCUT PRN ×3 (06:06→17:44)
--- NOTE | 2019-06-02 06:21 | NUR ---
CLOSING NOTES PT RESTING IN BED. BS 177. ADMINISTERED 2 UNITS OF REGULAR INSULIN. NO SIGNS AND SYMPTOMS OF PAIN NOTED. PT BREATHING UNLABORED TO ROOM AIR. HEPARIN AT 15 ML/HR MAINTAINED PER PROTOCOL. FALL AND SAFETY PRECAUTIONS IN PLACE. CALL LIGHT WITHIN REACH. WILL CONTINUE TO MONITOR UNTIL ENDORSE TO DAY SHIFT NURSE.
--- NOTE | 2019-06-02 07:20 | NUR ---
OPENING NOTE RECEIVED BEDSIDE SBAR FROM NIGHT RN, PATIENT IN BED, HEPARIN DRIP INFUSING AT 1500UNITS/HR EYES CLOSED, RESPIRATIONS EVEN, NON LABORED, BED IN LOW AND LOCKED POSITION, CALL LIGHT WITHIN REACH, BED ALARM ON
[2019-06-02 08:00] VITALS: BP_SYST 156
[2019-06-02] MEDS: guaiFENesin 200 MG/10 ML UDC PO SCH ×3 (09:28→17:36)
[2019-06-02] MEDS: NIFEDIPINE 30 MG TAB.ER.24 PO SCH (09:28)
[2019-06-02] MEDS: VANCOMYCIN HCL 1,000 MG in NS 250 ML IV SCH (09:28)
[2019-06-02] MEDS: MEGESTROL ACETATE 400 MG/10 ML UDC PO SCH (09:28)
[2019-06-02] MEDS: ASCORBIC ACID 500 MG TABLET PO SCH (09:29)
[2019-06-02] MEDS: MULTIVITAMINS TAB 1 TABLET PO SCH (09:29)
[2019-06-02] MEDS: DOCUSATE SODIUM 100 MG CAPSULE PO SCH (09:29)
[2019-06-02] MEDS: BALSAM PERU/CASTOR OIL 60 GM OINT...G. TP SCH (09:32)
--- NOTE | 2019-06-02 10:30 | NUR ---
nurse note patient in bed, eyes closed, respirations even, non labored, bed in low and locked position, call light within reach, bed alarm on
[2019-06-02 12:45] VITALS: BP_SYST 136
--- NOTE | 2019-06-02 13:49 | NUR ---
DC Planning: per dr. Poe: ordered LTAC eval for osteomyelitis treatments.
--- NOTE | 2019-06-02 14:14 | NUR ---
CONSULT ORTHO RIGHT FOOT OSTEOMYELITIS DR WALTERS [phone] DR WAN SPINE SURGEON S/W [facility]
--- NOTE | 2019-06-02 14:25 | NUR ---
Discharge Planning: DCP faxed pt referral to [facility] (f [phone] p [phone]) DCP to follow up. Addendum: 06/02/19 at 1645 by Cynthia Jessica DP Per [facility] (f [phone] p [phone]) patient accepted to [facility]. DCP made nurse aware, DC order is needed to receive a room.
--- NOTE | 2019-06-02 14:32 | NUR ---
nurse note patient in bed, eyes open, respirations even, non labored, bed in low and locked position, call light within reach
--- NOTE | 2019-06-02 15:10 | NUR ---
physician rounds Dr. Bah bedside examining patient Addendum: 06/02/19 at 1610 by Jenny Burch RN Dr. Bah removed dressing and reapplied dressing
[2019-06-02 16:31] VITALS: BP_SYST 130
[2019-06-02] MEDS ORDERED: AMPICILLIN SODIUM/SULBACTAM NA 1.5 GM in NS 50 ML IV SCH (18:00)
--- NOTE | 2019-06-02 18:20 | NUR ---
family notified Patients brother Marianne was notified of discharge and transfer to [facility], Patients brother verbalized understanding and is agreeable to transfer
--- NOTE | 2019-06-02 18:39 | NUR ---
called report called report to Daren Hollis, , gave SBAR report to Nuvia, informed Nuvia that patient is on Heparin drip 1500units per hour. informed her that [facility] will be transferring patient at 2000
--- NOTE | 2019-06-02 18:50 | NUR ---
medical billing coordinator used medical billing coordinator [phone] [place] to obtain consent to transfer patient to [facility]
[2019-06-02 18:59] VITALS: BP_SYST 124
--- NOTE | 2019-06-02 19:10 | NUR ---
closing note bedside sbar given to night RN, bed in low and locked position, call light within reach, bed alarm on, Heparin 1500units/hr running on right wrist endorsed care to night RN
--- NOTE | 2019-06-02 20:35 | NUR ---
PT TRANSFERRED Report given by rosa VELAZCO to Nuvia at [facility]. Transfer packet with Transfer Orders and Medication Reconciliation form given to EMT with report. Exitcare provided. [facility] ID band removed, replaced with ID band with pt's name and . IV to right wrist and left forearm saline locked. All belongings sent with patient. Patient left floor via gurney escorted by EMT in no distress.
== END 2019-06-02 20:30 | DRG 539 ==
LOC: SED 18:45 → STU 22:26
PROVIDERS: ADMIT Family Medicine; ATTEND Family Medicine
DX: M86.8X7 Other osteomyelitis, ankle and foot (principal); E43 Unspecified severe protein-calorie malnutrition; E87.1 Hypo-osmolality and hyponatremia; N17.9 Acute kidney failure, unspecified; E11.69 Type 2 diabetes mellitus with other specified complication; Y83.8 Other surgical procedures as the cause of abnormal reaction of the patient, or of later complication, without mention of misadventure at the time of the procedure; E86.0 Dehydration; D72.829 Elevated white blood cell count, unspecified; E11.22 Type 2 diabetes mellitus with diabetic chronic kidney disease; I12.9 Hypertensive chronic kidney disease with stage 1 through stage 4 chronic kidney disease, or unspecified chronic kidney disease; N18.3 Chronic kidney disease, stage 3 (moderate); D63.1 Anemia in chronic kidney disease; E11.65 Type 2 diabetes mellitus with hyperglycemia; E11.51 Type 2 diabetes mellitus with diabetic peripheral angiopathy without gangrene; Y92.89 Other specified places as the place of occurrence of the external cause; Z79.899 Other long term (current) drug therapy; Z79.2 Long term (current) use of antibiotics; Z68.26 Body mass index [BMI] 26.0-26.9, adult
CPT/HCPCS: 36415; 73706; 73721; 80048; 80053; 80202-TC; 82962; 83605; 83735-TC; 84100-TC; 85025; 85610-TC; 85651-TC; 85730-TC; 86140; 87040-TC; 87070-TC; 87081; 87186-TC; 93923; 96365; 96367; 99285; G0378; J0295; J1644; J1650; J1815; J2543; J3370; J3480; J3490; J7040; J7050; J7060; Q9967